=== PATIENT | female | born 1995 | race Caucasian/White ===

== ENCOUNTER 2018-08-27 01:17 | Emergency (ER) | payer MEDICAID ==
[~2018-08-27] VITALS: Ht 167.6 cm; Wt 64.8 kg
[2018-08-27 01:22] VITALS: Ht 167.6 cm; Wt 64.8 kg
--- NOTE | 2018-08-27 02:58 | ERD ---
ER Documentation Chief Complaint Chief Complaint vaginal bleeding/abd pain since 1800, states 5 weeks HPI During the patient's encounter translation services were utilized Language: [Armenian] Source: [in person] 22-year-old female is a G1, P0 at approximately 6 weeks and 2 days based on LMP. She states that she took a morning after pill approximately 3 weeks ago. Patient found out that she was on , 4 days ago. Patient states that today she noted abdominal cramping and vaginal bleeding that was consistent with prior menstrual cycles. Patient denies any fevers or chills. Pain is mild at this time. She has not seen an [employer] [facility] [employer] [facility] during this . ROS All systems reviewed and are negative except as per history of present illness. Allergies Allergies: Coded Allergies: No Known Drug Allergies (Verified Allergy, Unknown, 08/27/18) FmHx Family History: No diabetes Physical Exam Vitals Vital Signs Date Temp Pulse Resp B/P (MAP) Pulse Ox O2 O2 Flow FiO2 Time Delivery Rate 08/27/18 97.9 64 18 107/56 100 01:22 (73) Physical Exam General: Well developed, well nourished, no acute distress Head: Normocephalic, atraumatic. Eyes: EOM intact ENT: Moist mucous membranes Neck: Full ROM Respiratory: No respiratory distress Cardiovascular: Well perfused distally Abdominal: Nondistended, nontender no rebound or guarding : Deferred MSK: No edema, no unilateral swelling, 5/5 strength Neurologic: Alert and oriented, moving all extremities, normal speech, steady gait Skin: No rash Psych: Normal mood Result Diagram: 08/27/18 0242 Results 24 hrs Laboratory Tests Test 08/27/18 02:42 08/27/18 03:00 White Blood Count 9.9 10^3/ul Red Blood Count 4.38 10^6/ul Hemoglobin 12.6 g/dl Hematocrit 37.8 % Mean Corpuscular Volume 86.3 fl Mean Corpuscular Hemoglobin 28.8 pg Mean Corpuscular Hemoglobin Concent 33.3 g/dl Red Cell Distribution Width 12.1 % Platelet Count 304 10^3/UL Mean Platelet Volume 8.4 fl Immature Granulocytes % 0.300 % Neutrophils % 54.2 % Lymphocytes % 34.0 % Monocytes % 9.4 % Eosinophils % 1.7 % Basophils % 0.4 % Nucleated Red Blood Cells % 0.0 /100WBC Immature Granulocytes # 0.030 10^3/ul Neutrophils # 5.4 10^3/ul Lymphocytes # 3.4 10^3/ul Monocytes # 0.9 10^3/ul Eosinophils # 0.2 10^3/ul Basophils # 0.0 10^3/ul Nucleated Red Blood Cells # 0.0 10^3/ul Beta HCG, Quantitative 61.5 mIU/ml Urine Color YELLOW Urine Clarity SLIGHTLY CLOUDY Urine pH 6.0 Urine Specific Bumpass 1.021 Urine Ketones NEGATIVE mg/dL Urine Nitrite NEGATIVE mg/dL Urine Bilirubin NEGATIVE mg/dL Urine Urobilinogen NEGATIVE mg/dL Urine Leukocyte Esterase TRACE Pantera/ul Urine Microscopic RBC 83 /HPF Urine Microscopic WBC 2 /HPF Urine Hemoglobin 3+ mg/dL Urine Glucose NEGATIVE mg/dL Urine Total Protein NEGATIVE mg/dl Procedures/MDM EKG, MONITORS, & DIAGNOSTIC IMAGING: Pelvic ultrasound: IMPRESSION: Possible very early intrauterine gestational sac. Follow-up scanning would be suggested. Ectopic cannot be completely excluded although no fluid was seen in the cul-de-sac and no ectopic was visualized. Results were called to Ferny Aparicio at 08/27/2018 6:21:00 AM RPTAT: [facility] INTERPRETATION: Serum hCG: < 100 Rh status: positive MEDICAL DECISION MAKING: The patient's symptoms are most consistent with acute threatened miscarriage. She exhibits no signs or symptoms concerning for acute ectopic however this needs to be evaluated here in the emergency room and be ruled out. In addition I doubt other acute intra-abdominal process such as ovarian cyst, ovarian torsion, acute appendicitis, colitis, kidney stone, acute pancreatitis or acute cholecystitis. The patient will require further evaluation, laboratory testing and diagnostic imaging to evaluate and rule out acute ectopic . Patient will also require prompt outpatient [employer] follow-up. We discussed this at the bedside. We had an in-depth conversation regarding the diagnosis of threatened miscarriage, the prevalence of this process, the expected management as well as return precautions. ER COURSE: * The patient has no further vaginal bleeding. She is him dynamically stable and resting comfortably. * There was significant delay on the patient's ultrasound because of radiology issues. I was finally able to discuss the case with the attending radiologist. The patient has possible signs of early gestational sac however I cannot definitively say the patient has an IUP. * Based on the hCG and ultrasound this is possibly consistent with inevitable versus completed AB. However, ectopic has not been ruled out in this patient. The patient is hemodynamically stable with a benign abdomen. I believe repeat assessment in 2 to 3 days with repeat hCG would be appropriate. The patient was informed of return precautions and follow-up with [employer] [employer]. Patient verbalizes understanding and feels comfortable with the plan. I kept the patient and/or family informed of laboratory and diagnostic imaging results throughout the emergency room course. DISPOSITION PLAN: We discussed follow up with the patient's primary care doctor within 24 to 48 hours as needed. We also discussed return to the emergency room for worsening symptoms or worsening condition. Close outpatient [employer] follow-up for repeat hCG value in 2-3 days and ultrasound as needed. Discharge medications: None required Departure Diagnosis: Primary Impression: Threatened miscarriage Additional Impression: Vaginal bleeding in patient at less than 20 weeks gestation Condition: Stable FERNY VERAS MD August 27, 2018 02:58
[2018-08-27 06:47] VITALS: BP 112/62; PULSE 60; RESP 18
== END 2018-08-27 06:49 | disposition home or self-care (01) ==
LOC: E/R 01:17
DX: O20.0 Threatened abortion (principal); Z3A.01 Less than 8 weeks gestation of pregnancy
CPT/HCPCS: 76801; 76817; 81001; 84702; 85025; 86900; 86901; Z7502

== ENCOUNTER 2018-11-24 21:37 | Emergency (ER) | payer MEDICAID ==
[~2018-11-24] VITALS: Ht 157.5 cm; Wt 67.0 kg
[~2018-11-24 21:37] MED LIST: BUTA1CAP38 PO; IBUP-1542 PO
[2018-11-24 21:39] VITALS: BP 111/59; PULSE 60; RESP 14; Ht 157.5 cm; Wt 67.0 kg
[2018-11-24] MEDS ORDERED: KETOROLAC 30 MG INJ IM STA (22:29)
--- NOTE | 2018-11-24 23:12 | ERD ---
ER Documentation Chief Complaint Chief Complaint AGGARWAL X 1 MONTH. HPI 22-year-old female presents with a bitemporal headache for the last month. She denies head injury. She denies fevers, vomiting, deficits, visual changes, abdominal pain, cough, shortness of breath or chest pain. ROS All systems reviewed and are negative except as per history of present illness. Medications Home Meds Active Scripts Ibuprofen* (Motrin*) 600 Mg Tab, 600 MG PO Q6, #20 TAB Prov:KINGSTON LANGLEY MD 11/24/18 Eplalcvkvb-Aezujjxhpoybu-Vzcdyduo* (Fioricet*) 50-300-40 Mg Capsule, 1 CAP PO Q4H PRN for HEADACHE, #10 CAP Prov:KINGSTON LANGLEY MD 11/24/18 Allergies Allergies: Coded Allergies: No Known Drug Allergies (Verified Allergy, Unknown, 08/27/18) PMhx/Soc Medical and Surgical Hx: pt denies Medical Hx, pt denies Surgical Hx History of Surgery: No Anesthesia Reaction: No Hx Neurological Disorder: No Hx Respiratory Disorders: No Hx Cardiac Disorders: No Hx Psychiatric Problems: No Hx Miscellaneous Medical Probl: No Hx Alcohol Use: No Hx Substance Use: No Hx Tobacco Use: No Smoking Status: Never smoker FmHx Family History: No diabetes, No coronary disease, No other Physical Exam Vitals Vital Signs Date Temp Pulse Resp B/P (MAP) Pulse Ox O2 O2 Flow FiO2 Time Delivery Rate 11/24/18 98.1 60 14 111/59 100 21:39 (76) Physical Exam Const: No acute distress Head: Atraumatic reproducible headache in the bitemporal area. No pulsatile masses. Eyes: Normal Conjunctiva ENT: Normal External Ears, Nose and Mouth. Neck: Full range of motion. No meningismus. Resp: Clear to auscultation bilaterally Cardio: Regular rate and rhythm, no murmurs Abd: Soft, non tender, non distended. Normal bowel sounds Skin: No petechiae or rashes Back: No midline or flank tenderness Ext: No cyanosis, or edema Neur: Awake and alert. Normal gait. No appreciable focal neurologic deficits . Psych: Normal Mood and Affect Results 24 hrs Laboratory Tests Test 11/24/18 22:48 Bedside Urine pH (LAB) 6.0 Bedside Urine Protein (LAB) Negative Bedside Urine Glucose (UA) Negative Bedside Urine Ketones (LAB) Negative Bedside Urine Blood Negative Bedside Urine Nitrite (LAB) Negative Bedside Urine Leukocyte Esterase (L Negative POC Beta HCG, Qualitative NEGATIVE Current Medications Medications Dose Sig/Radha Start Time Status Last (Trade) Ordered Route PRN Stop Time Admin Dose Reason Admin Ketorolac 30 mg ONCE STAT 11/24/18 DC 11/24/18 Tromethamine IM 22:29 11/24/18 22:54 (Toradol) 22:30 Procedures/MDM Urine negative hCG negative. Patient presents with signs and symptoms of likely tension headache. She was treated with Toradol but will be treated with Fioricet, ibuprofen, instructed her fluids, rest, primary care follow-up and return precautions. The patient was stable with no new complaints during the ER course. Clinically, there is no current evidence to suggest meningitis, sepsis, acute abdomen, pneumonia, stroke, acute coronary syndrome, pulmonary embolism, aortic dissection or any other emergent condition appearing to require further evaluation or hospitalization. Patient counseled regarding my diagnostic impression and care plan. Prior to discharge all questions answered. Pt agrees with treatment plan and understands strict return precautions. Pt is instructed to follow up with primary care provider within 24-48 hours. Precautionary instructions provided including instructions to return to the ER if not improving or for any worsening or changing symptoms or concerns. Disclaimer: Inadvertent spelling and grammatical errors are likely due to EHR/dictation software use and do not reflect on the overall quality of patient care. Also, please note that the electronic time recorded on this note does not necessarily reflect the actual time of the patient encounter. Departure Diagnosis: Primary Impression: Headache Headache type: unspecified Headache chronicity pattern: unspecified pattern Intractability: not intractable Qualified Codes: R51 - Headache Condition: Stable Patient Instructions: Headache, Tension Referrals: NO PRIMARY,CARE PHYSICIAN (PCP) Additional Instructions: probabalmente tension. Cheque otro vez con prado doctor primario en el proximo moss or regresa para mas o nueva simptomas. KINGSTON LANGLEY MD Nov 24, 2018 23:12
== END 2018-11-24 23:35 | disposition home or self-care (01) ==
LOC: FTE 21:37
DX: R51 Headache (principal)
CPT/HCPCS: 81003; 81025; 96372; J1885; Z7502